=== PATIENT | male | born 1955 | race African-American/Black ===

== ENCOUNTER 2018-08-17 12:38 | Inpatient (IN) | payer OTHER ==
[~2018-08-17] VITALS: Ht 152.4 cm; Wt 42.2 kg
[2018-08-17] MEDS ORDERED: ADENOSINE 3 MG/ML 2ML VIAL IV ONE ×3 (12:59→13:15)
[2018-08-17] MEDS ORDERED: SODIUM CHLORIDE 0.9% 1000ML BAG (SEPSIS BOLUS) IV ONE (13:00)
[2018-08-17] MEDS ORDERED: PIPERACILLIN/TAZ 3.375G PREMIX 50 ML IV ONE (13:00)
[2018-08-17] MEDS ORDERED: DILTIAZEM HCL 5MG/ML 5ML VIAL IV ONE (13:15)
[2018-08-17 13:27] LABS: HEMATOCRIT. 40.5 % (42.0-52.0); HEMOGLOBIN. 12.6 g/dL (14.0-18.0); MEAN CORPUSCULAR HEMOGLOBIN 28.8 pg (28.0-32.0); MEAN CORPUSCULAR VOLUME 92.4 fL (80.0-94.0); MEAN PLATELET VOLUME 10.7 fl (7.4-10.4); PLATELET 262 x1000/uL (130-400); RED BLOOD CELL COUNT 4.38 mill/uL (4.7-6.1); RED CELL DISTRIBUTION WIDTH 15.5 % (11.6-14.6)
[2018-08-17 13:30] LABS: CHLORIDE 98 mEq/L (98-107)
[2018-08-17 13:34] LABS: INR 1.1; PROTHROMBIN TIME 10.7 sec (9.1-11.1)
[2018-08-17] MEDS ORDERED: LIDOCAINE HCL 1% 20ML VIAL (Pyxis) INJ ONE (14:16)
[2018-08-17 14:21] LABS: PLATELET ESTIMATE NORMAL
[2018-08-17] MEDS ORDERED: INSULIN REGULAR (DRIP) 100 UNITS in SODIUM CHLORIDE 0.9% 100 ML IV ONE (14:48)
[2018-08-17] MEDS ORDERED: DILTIAZEM HCL 125 MG in DEXT 5% WATER 100 ML IV ONE ×2 (15:00→17:30)
[2018-08-17] MEDS ORDERED: SODIUM CHLORIDE 0.9% 1,000 ML IV ONE (15:45)
[2018-08-17 15:58] LABS: PHOSPHORUS 6.1 mg/dL (2.5-4.9)
[2018-08-17] MEDS: DILTIAZEM HCL 125 MG in SODIUM CHLORIDE 0.9% 100 ML IV SCH ×2 (16:28→16:47)
[2018-08-17] MEDS: SODIUM CHLORIDE 0.9% 1,000 ML IV SCH (17:22)
[2018-08-17] MEDS ORDERED: CLONIDINE 0.1MG TABLET PO PRN (17:30)
[2018-08-17] MEDS ORDERED: INSULIN REGULAR (DRIP) 100 UNITS in SODIUM CHLORIDE 0.9% 100 ML IV SCH (17:30)
[2018-08-17] MEDS ORDERED: ONDANSETRON HCL 4MG/2ML INJ IV PRN (17:30)
[2018-08-17] MEDS ORDERED: LEVOFLOXACIN 500MG PREMIX 100 ML IV SCH ×2 (17:30→22:45)
[2018-08-17] MEDS ORDERED: GUAIFENESIN 200MG/10ML SUGAR FREE UDC PO PRN (17:30)
[2018-08-17 21:23] LABS: CHLORIDE 113 mEq/L (98-107)
[2018-08-17] MEDS ORDERED: ENOXAPARIN 40MG/0.4ML SYR SUBCUT SCH (23:00)
[2018-08-17] MEDS ORDERED: METOPROLOL TARTRATE 25MG TABLET PO SCH (23:15)
[2018-08-18] VITALS (52 sets, daily range): BP systolic 77–159; BP diastolic 38–86
[2018-08-18 00:06] LABS: CHLORIDE 117 mEq/L (98-107)
[2018-08-18] MEDS ORDERED: DEXT 5%/0.45% NACL 1000ML 1,000 ML IV ONE (01:29)
[2018-08-18] MEDS ORDERED: DEXTROSE 50% WATER 50ML SYRINGE IV ONE ×2 (05:00→08:46)
[2018-08-18] MEDS: SODIUM CHLORIDE 0.9% 1,000 ML IV SCH (06:42)
[2018-08-18 06:49] LABS: HEMATOCRIT. 31.3 % (42.0-52.0); HEMOGLOBIN. 10.2 g/dL (14.0-18.0); MEAN CORPUSCULAR HEMOGLOBIN 28.4 pg (28.0-32.0); MEAN CORPUSCULAR VOLUME 86.7 fL (80.0-94.0); MEAN PLATELET VOLUME 9.9 fl (7.4-10.4); PLATELET 194 x1000/uL (130-400); RED BLOOD CELL COUNT 3.61 mill/uL (4.7-6.1); RED CELL DISTRIBUTION WIDTH 14.7 % (11.6-14.6)
[2018-08-18 06:58] LABS: CHLORIDE 122 mEq/L (98-107)
[2018-08-18 07:10] LABS: T4 FREE 1.44 ng/dL (0.76-1.46)
[2018-08-18 07:18] LABS: BETA HYDROXYBUTYRATE < 0.1 mMol/L (0.0-0.3)
[2018-08-18 07:26] LABS: PLATELET ESTIMATE NORMAL
[2018-08-18] MEDS ORDERED: HYDROMORPHONE HCL/PF 2MG/ML CPJ IV PRN (09:33)
[2018-08-18] MEDS ORDERED: ENOXAPARIN 40MG/0.4ML SYR SUBCUT SCH (10:00)
[2018-08-18] MEDS ORDERED: LEVOFLOXACIN 500MG PREMIX 100 ML IV SCH (11:00)
[2018-08-18] MEDS: METOPROLOL TARTRATE 25MG TABLET PO SCH ×2 (12:05→20:20)
[2018-08-18] MEDS: DEXT 5% WATER + KCL 20MEQ/L 1,000 ML IV SCH (12:19)
[2018-08-18] MEDS ORDERED: DILTIAZEM HCL 125 MG in DEXT 5% WATER 100 ML IV PRN (12:30)
[2018-08-18 12:51] LABS: BG BASE EXCESS -0.8 mmol/L (-2.0-2.0); BG CARBOXYHEMOGLOBIN 0.4 % (0.5-1.5); BG DEOXYHEMOGLOBIN 10.2 % (0.0-5.0); BG FRACTION INSPIRED OXYGEN 36; BG HCO3 ACT 22.8 mmol/L (22.0-26.0); BG METHEMOGLOBIN 0.1 % (0.0-1.5); BG OXYGEN SATURATION 89.7 % (92.0-98.5); BG OXYHEMOGLOBIN 89.3 % (94.0-97.0); BG PCO2 34.6 mmHg (35.0-45.0); BG PH 7.437 (7.350-7.450); BG PO2 54.5 mmHg (75.0-100.0); BG SAMPLE SITE RIGHT BRACHIAL; BG TOTAL HEMOGLOBIN 12.8 g/dL (12.0-18.0); BG VENT MODE NASAL CANNULA
[2018-08-18] MEDS ORDERED: NOREPINEPHRINE 4 MG in DEXT 5% WATER 246 ML IV PRN ×2 (15:30→17:14)
[2018-08-18 15:41] LABS: CREATINE KINASE MB FRACTION 19.9 ng/mL (0.5-3.6)
[2018-08-18] MEDS: PHENYLEPHRINE 40 MG in DEXT 5% WATER 246 ML IV PRN ×2 (16:54→23:40)
[2018-08-18] MEDS: ASPIRIN 81MG TABLET PO SCH (17:15)
[2018-08-18] MEDS: CLOPIDOGREL 75MG TABLET PO SCH (17:15)
[2018-08-18] MEDS ORDERED: VANCOMYCIN 1 G PREMIX 200 ML IV SCH (19:30)
[2018-08-18] MEDS ORDERED: IPRATROPIUM/ALBUTEROL 0.5-3(2.5)MG/3ML NEB HHN PRN (19:30)
[2018-08-18] MEDS: PIPERACILLIN/TAZ 3.375G PREMIX 50 ML IV SCH (20:20)
[2018-08-18] MEDS ORDERED: DEXTROSE 50% WATER 50ML SYRINGE IV PRN (20:30)
[2018-08-18 20:34] LABS: HEPATITIS B SURFACE ANTIGEN NEGATIVE
[2018-08-18 21:04] LABS: HEPATITIS A AB IGM NEGATIVE (NEGATIVE)
[2018-08-18 21:42] LABS: CLARITY URINE TURBID (CLEAR); COLOR URINE YELLOW (YELLOW); KETONES URINE NEGATIVE (NEGATIVE); LEUKOCYTE ESTERASE URINE 3+ (NEGATIVE); NITRITE URINE NEGATIVE (NEGATIVE); OCCULT BLOOD URINE 3+ (NEGATIVE); PROTEIN URINE NEGATIVE (NEGATIVE); SPECIFIC GRAVITY URINE 1.018 (1.005-1.030)
[2018-08-18 21:54] LABS: *AMPHETAMINES SCREEN URINE NEGATIVE (NEGATIVE); *BARBITURATES SCREEN URINE NEGATIVE (NEGATIVE); *BENZODIAZEPINES SCREEN URINE NEGATIVE (NEGATIVE); *COCAINE SCREEN URINE NEGATIVE (NEGATIVE)
[2018-08-18 21:55] LABS: CANNABINOID URINE SCREEN PRESUMTIVE POSITIVE (NEGATIVE); METHADONE URINE SCREEN NEGATIVE (NEGATIVE); OPIATES URINE SCREEN PRESUMTIVE POSITIVE (NEGATIVE); PHENCYCLIDINE URINE SCREEN NEGATIVE (NEGATIVE)
[2018-08-18] MEDS: BLOOD SUGAR DIAGNOSTIC STRIP TEST SCH (22:14)
[2018-08-18] MEDS ORDERED: IOHEXOL-350 100 ML BOTTLE ONE (22:30)
[2018-08-18] MEDS: ENOXAPARIN 60MG/0.6ML SYR SUBCUT SCH (23:01)
[2018-08-18 23:23] LABS: CREATINE KINASE MB FRACTION 12.1 ng/mL (0.5-3.6)
[2018-08-19] VITALS (94 sets, daily range): BP systolic 84–159; BP diastolic 27–106
[2018-08-19] MEDS: DEXT 5% WATER + KCL 20MEQ/L 1,000 ML IV SCH ×2 (00:14→14:00)
[2018-08-19 01:17] LABS: CREATINE KINASE 3049 IU/L (39-308)
[2018-08-19] MEDS: BLOOD SUGAR DIAGNOSTIC STRIP TEST SCH ×5 (02:30→23:50)
[2018-08-19] MEDS: INSULIN LISPRO 100 UNITS/ML SUBCUT SCH ×5 (02:54→23:50)
[2018-08-19] MEDS: PIPERACILLIN/TAZ 3.375G PREMIX 50 ML IV SCH ×3 (02:54→19:00)
[2018-08-19 05:29] LABS: HEMATOCRIT. 37.2 % (42.0-52.0); HEMOGLOBIN. 11.8 g/dL (14.0-18.0); MEAN CORPUSCULAR HEMOGLOBIN 27.9 pg (28.0-32.0); MEAN CORPUSCULAR VOLUME 87.7 fL (80.0-94.0); MEAN PLATELET VOLUME 11.6 fl (7.4-10.4); PLATELET 175 x1000/uL (130-400); RED BLOOD CELL COUNT 4.24 mill/uL (4.7-6.1); RED CELL DISTRIBUTION WIDTH 14.6 % (11.6-14.6)
[2018-08-19 05:37] LABS: CHLORIDE 111 mEq/L (98-107)
[2018-08-19 05:49] LABS: CREATINE KINASE MB FRACTION 7.9 ng/mL (0.5-3.6)
[2018-08-19 06:04] LABS: CREATINE KINASE 2826 IU/L (39-308)
[2018-08-19 08:23] LABS: BG BASE EXCESS -1.1 mmol/L (-2.0-2.0); BG CARBOXYHEMOGLOBIN 0.3 % (0.5-1.5); BG DEOXYHEMOGLOBIN 2.2 % (0.0-5.0); BG FRACTION INSPIRED OXYGEN 50; BG HCO3 ACT 21.4 mmol/L (22.0-26.0); BG METHEMOGLOBIN 0.8 % (0.0-1.5); BG OXYGEN SATURATION 97.8 % (92.0-98.5); BG OXYHEMOGLOBIN 96.7 % (94.0-97.0); BG PCO2 28.5 mmHg (35.0-45.0); BG PH 7.493 (7.350-7.450); BG PO2 110.1 mmHg (75.0-100.0); BG SAMPLE SITE RIGHT RADIAL; BG TOTAL HEMOGLOBIN 10.9 g/dL (12.0-18.0); BG VENT MODE MASK - VENTI
[2018-08-19] MEDS: IPRATROPIUM/ALBUTEROL 0.5-3(2.5)MG/3ML NEB HHN SCH ×3 (08:42→22:06)
[2018-08-19] MEDS: METOPROLOL TARTRATE 25MG TABLET PO SCH ×2 (09:00→21:00)
[2018-08-19] MEDS: VANCOMYCIN 1 G PREMIX 200 ML IV SCH ×2 (09:00→21:22)
[2018-08-19] MEDS: ASPIRIN 81MG TABLET PO SCH (10:03)
[2018-08-19] MEDS: CLOPIDOGREL 75MG TABLET PO SCH (10:03)
[2018-08-19] MEDS: PHENYLEPHRINE 40 MG in DEXT 5% WATER 246 ML IV PRN (10:07)
[2018-08-19] MEDS: ENOXAPARIN 60MG/0.6ML SYR SUBCUT SCH (11:30)
[2018-08-19 12:45] LABS: PLATELET ESTIMATE NORMAL
[2018-08-19] MEDS: SODIUM CHLORIDE 0.45% 1,000 ML IV SCH (19:00)
[2018-08-19] MEDS: ENOXAPARIN 40MG/0.4ML SYR SUBCUT SCH (23:49)
[2018-08-20] VITALS (63 sets, daily range): BP systolic 89–137; BP diastolic 28–84
[2018-08-20] MEDS: PIPERACILLIN/TAZ 3.375G PREMIX 50 ML IV SCH ×3 (02:13→18:29)
[2018-08-20] MEDS: IPRATROPIUM/ALBUTEROL 0.5-3(2.5)MG/3ML NEB HHN SCH ×4 (02:26→21:15)
[2018-08-20 06:00] LABS: HEMATOCRIT. 27.2 % (42.0-52.0); HEMOGLOBIN. 9.1 g/dL (14.0-18.0); MEAN CORPUSCULAR HEMOGLOBIN 28.7 pg (28.0-32.0); MEAN CORPUSCULAR VOLUME 85.5 fL (80.0-94.0); MEAN PLATELET VOLUME 10.4 fl (7.4-10.4); PLATELET 140 x1000/uL (130-400); RED BLOOD CELL COUNT 3.18 mill/uL (4.7-6.1); RED CELL DISTRIBUTION WIDTH 14.5 % (11.6-14.6)
[2018-08-20 06:03] LABS: CHLORIDE 109 mEq/L (98-107)
[2018-08-20] MEDS: BLOOD SUGAR DIAGNOSTIC STRIP TEST SCH ×4 (06:08→23:57)
[2018-08-20] MEDS: INSULIN LISPRO 100 UNITS/ML SUBCUT SCH ×4 (06:09→23:58)
[2018-08-20] MEDS: VANCOMYCIN 1 G PREMIX 200 ML IV SCH ×2 (08:57→20:52)
[2018-08-20 09:06] LABS: HIV SCREEN 4G Non Reactive (Non Reactive)
[2018-08-20 09:13] LABS: PLATELET ESTIMATE NORMAL
[2018-08-20] MEDS: ASPIRIN 81MG TABLET PO SCH (09:24)
[2018-08-20] MEDS: CLOPIDOGREL 75MG TABLET PO SCH (09:24)
[2018-08-20] MEDS: METOPROLOL TARTRATE 25MG TABLET PO SCH ×2 (09:24→20:52)
[2018-08-20] MEDS ORDERED: POTASSIUM CHLORIDE INJ 40 MEQ in DEXT 5% WATER 250 ML IV SCH (12:00)
[2018-08-20] MEDS: FLUCONAZOLE 100MG TABLET PO SCH (12:02)
[2018-08-20] MEDS: ENOXAPARIN 40MG/0.4ML SYR SUBCUT SCH ×2 (12:41→23:57)
[2018-08-20] MEDS: SODIUM CHLORIDE 0.45% 1,000 ML IV SCH (18:29)
[2018-08-20] MEDS: ACETAMINOPHEN 325MG TABLET PO PRN (23:57)
[2018-08-21] VITALS: BP 123/50
[2018-08-21] MEDS: IPRATROPIUM/ALBUTEROL 0.5-3(2.5)MG/3ML NEB HHN SCH ×5 (01:15→22:09)
[2018-08-21] MEDS: PIPERACILLIN/TAZ 3.375G PREMIX 50 ML IV SCH ×3 (02:30→18:23)
[2018-08-21] MEDS: SODIUM CHLORIDE 0.45% 1,000 ML IV SCH ×2 (02:31→22:02)
[2018-08-21 04:00] VITALS: BP 147/82
[2018-08-21] MEDS: BLOOD SUGAR DIAGNOSTIC STRIP TEST SCH ×3 (05:39→18:18)
[2018-08-21] MEDS: INSULIN LISPRO 100 UNITS/ML SUBCUT SCH ×3 (05:39→18:24)
[2018-08-21 08:00] VITALS: BP 151/56
[2018-08-21] MEDS: CLOPIDOGREL 75MG TABLET PO SCH (09:55)
[2018-08-21] MEDS: METOPROLOL TARTRATE 25MG TABLET PO SCH ×2 (09:56→22:01)
[2018-08-21] MEDS: FLUCONAZOLE 100MG TABLET PO SCH (09:56)
[2018-08-21] MEDS: ASPIRIN 81MG TABLET PO SCH (09:56)
[2018-08-21 12:00] VITALS: BP 143/56
[2018-08-21] MEDS: VANCOMYCIN 500 MG PREMIX 100 ML IV SCH ×2 (12:58→19:09)
[2018-08-21] MEDS: ENOXAPARIN 40MG/0.4ML SYR SUBCUT SCH (13:09)
[2018-08-21] MEDS: INSULIN GLARGINE UD 100 UNITS/ML SYR SUBCUT SCH (13:11)
[2018-08-21 15:29] LABS: CHLORIDE 105 mEq/L (98-107)
[2018-08-21 16:00] VITALS: BP 110/50
[2018-08-21] MEDS ORDERED: POTASSIUM CHLORIDE 20MEQ TABLET SR PO NR (17:00)
[2018-08-21 20:00] VITALS: BP 131/58
[2018-08-22] VITALS: BP 143/51
[2018-08-22] MEDS: INSULIN LISPRO 100 UNITS/ML SUBCUT SCH ×5 (00:03→23:55)
[2018-08-22] MEDS: IPRATROPIUM/ALBUTEROL 0.5-3(2.5)MG/3ML NEB HHN SCH ×4 (02:25→21:30)
[2018-08-22] MEDS: VANCOMYCIN 500 MG PREMIX 100 ML IV SCH ×3 (03:33→18:06)
[2018-08-22 04:00] VITALS: BP 118/49
[2018-08-22] MEDS: PIPERACILLIN/TAZ 3.375G PREMIX 50 ML IV SCH ×3 (04:37→18:06)
[2018-08-22] MEDS: BLOOD SUGAR DIAGNOSTIC STRIP TEST SCH ×5 (06:21→23:55)
[2018-08-22 08:00] VITALS: BP 122/53
[2018-08-22] MEDS: ENOXAPARIN 40MG/0.4ML SYR SUBCUT SCH (08:34)
[2018-08-22] MEDS: CLOPIDOGREL 75MG TABLET PO SCH (08:34)
[2018-08-22] MEDS: FLUCONAZOLE 100MG TABLET PO SCH (08:35)
[2018-08-22] MEDS: ASPIRIN 81MG TABLET PO SCH (08:35)
[2018-08-22] MEDS: METOPROLOL TARTRATE 25MG TABLET PO SCH ×2 (08:35→21:00)
[2018-08-22] MEDS: ACETAMINOPHEN 325MG TABLET PO PRN (08:36)
[2018-08-22 09:10] LABS: BASOPHILS % 0.2 % (0.0-2.0); EOSINOPHILS % 1.7 % (0.0-5.0); HEMOGLOBIN. 8.9 g/dL (14.0-18.0); LYMPHOCYTES % 9.4 % (20.0-50.0); MEAN CORPUSCULAR HEMOGLOBIN 28.5 pg (28.0-32.0); MEAN CORPUSCULAR VOLUME 86.4 fL (80.0-94.0); MEAN PLATELET VOLUME 9.6 fl (7.4-10.4); MONOCYTES % 11.3 % (2.0-8.0); NEUTROPHILS % 77.4 % (40.0-76.0); PLATELET 187 x1000/uL (130-400); RED BLOOD CELL COUNT 3.13 mill/uL (4.7-6.1); RED CELL DISTRIBUTION WIDTH 14.4 % (11.6-14.6)
[2018-08-22 09:28] LABS: CHLORIDE 106 mEq/L (98-107)
[2018-08-22 12:00] VITALS: BP 136/54
[2018-08-22] MEDS: INSULIN GLARGINE UD 100 UNITS/ML SYR SUBCUT SCH (12:19)
[2018-08-22] MEDS: SODIUM CHLORIDE 0.45% 1,000 ML IV SCH (13:50)
[2018-08-22 16:00] VITALS: BP_SYST 126; BP_SYST 128; BP_DIAS 48; BP_DIAS 50
[2018-08-22 20:00] VITALS: BP 109/48
[2018-08-23] VITALS: BP 140/53
[2018-08-23] MEDS: IPRATROPIUM/ALBUTEROL 0.5-3(2.5)MG/3ML NEB HHN SCH ×4 (00:41→20:04)
[2018-08-23] MEDS: VANCOMYCIN 500 MG PREMIX 100 ML IV SCH ×3 (02:42→18:31)
[2018-08-23] MEDS: PIPERACILLIN/TAZ 3.375G PREMIX 50 ML IV SCH ×3 (03:37→18:31)
[2018-08-23 04:00] VITALS: BP 110/50
[2018-08-23] MEDS: INSULIN LISPRO 100 UNITS/ML SUBCUT SCH ×3 (06:00→17:13)
[2018-08-23] MEDS: BLOOD SUGAR DIAGNOSTIC STRIP TEST SCH ×3 (06:02→17:14)
[2018-08-23] MEDS: METOPROLOL TARTRATE 25MG TABLET PO SCH ×2 (09:00→21:14)
[2018-08-23] MEDS: FLUCONAZOLE 100MG TABLET PO SCH (09:35)
[2018-08-23] MEDS: CLOPIDOGREL 75MG TABLET PO SCH (09:35)
[2018-08-23] MEDS: ENOXAPARIN 40MG/0.4ML SYR SUBCUT SCH (09:35)
[2018-08-23] MEDS: ASPIRIN 81MG TABLET PO SCH (09:36)
[2018-08-23] MEDS: INSULIN GLARGINE UD 100 UNITS/ML SYR SUBCUT SCH (10:42)
[2018-08-23 20:00] VITALS: BP 179/79
[2018-08-23] MEDS: SODIUM CHLORIDE 0.45% 1,000 ML IV SCH (21:13)
[2018-08-24] VITALS: BP 148/49
[2018-08-24] MEDS: BLOOD SUGAR DIAGNOSTIC STRIP TEST SCH ×3 (00:05→12:57)
[2018-08-24] MEDS: INSULIN LISPRO 100 UNITS/ML SUBCUT SCH ×3 (00:06→13:36)
[2018-08-24] MEDS: IPRATROPIUM/ALBUTEROL 0.5-3(2.5)MG/3ML NEB HHN SCH ×3 (02:00→13:29)
[2018-08-24] MEDS: VANCOMYCIN 500 MG PREMIX 100 ML IV SCH ×2 (02:06→13:37)
[2018-08-24] MEDS: PIPERACILLIN/TAZ 3.375G PREMIX 50 ML IV SCH ×2 (03:20→12:50)
[2018-08-24 04:00] VITALS: BP 127/47
[2018-08-24 08:00] VITALS: BP 127/52
[2018-08-24] MEDS: CLOPIDOGREL 75MG TABLET PO SCH (09:18)
[2018-08-24] MEDS: METOPROLOL TARTRATE 25MG TABLET PO SCH (09:18)
[2018-08-24] MEDS: FLUCONAZOLE 100MG TABLET PO SCH (09:18)
[2018-08-24] MEDS: ASPIRIN 81MG TABLET PO SCH (09:18)
[2018-08-24] MEDS: ENOXAPARIN 40MG/0.4ML SYR SUBCUT SCH (09:18)
[2018-08-24 11:31] LABS: BASOPHILS % 0.4 % (0.0-2.0); EOSINOPHILS % 0.8 % (0.0-5.0); HEMATOCRIT. 23.3 % (42.0-52.0); HEMOGLOBIN. 7.7 g/dL (14.0-18.0); LYMPHOCYTES % 15.6 % (20.0-50.0); MEAN CORPUSCULAR HEMOGLOBIN 28.7 pg (28.0-32.0); MEAN CORPUSCULAR VOLUME 86.6 fL (80.0-94.0); MEAN PLATELET VOLUME 9.4 fl (7.4-10.4); MONOCYTES % 13.4 % (2.0-8.0); NEUTROPHILS % 69.8 % (40.0-76.0); PLATELET 218 x1000/uL (130-400); RED BLOOD CELL COUNT 2.69 mill/uL (4.7-6.1); RED CELL DISTRIBUTION WIDTH 14.6 % (11.6-14.6)
[2018-08-24 11:44] LABS: CHLORIDE 106 mEq/L (98-107)
[2018-08-24 12:00] VITALS: BP 142/53
[2018-08-24] MEDS ORDERED: POTASSIUM CHLORIDE 20MEQ TABLET SR PO NR (13:15)
[2018-08-24] MEDS: INSULIN GLARGINE UD 100 UNITS/ML SYR SUBCUT SCH (13:37)
[2018-08-24 16:00] VITALS: BP 133/48
[2018-08-24 16:35] VITALS: BP 133/48
== END 2018-08-24 17:20 | disposition home or self-care (01) | DRG 720 ==
LOC: ER 12:38 → EDBEDREQ 14:00 → EDBEDREQSVC 14:00 → 5WST 15:44 → EDBEDREQ 15:47 → SUPCPDRO 17:21 → EDBEDREQSVC 08-18 05:24 → ENRESERV 08-18 07:28 → MICUNO 08-18 11:30 → 5WST 08-20 20:11
PROVIDERS: ADMIT Hospitalist; ATTEND Hospitalist
PROC: B5181ZA Fluoroscopy of Superior Vena Cava using Low Osmolar Contrast, Guidance (ICD-10-PCS; principal; 2018-08-17)
PROC: 02HV33Z Insertion of Infusion Device into Superior Vena Cava, Percutaneous Approach (ICD-10-PCS; 2018-08-17)
PROC: B548ZZA Ultrasonography of Superior Vena Cava, Guidance (ICD-10-PCS; 2018-08-17)
DX: A41.9 Sepsis, unspecified organism (principal); I21.4 Non-ST elevation (NSTEMI) myocardial infarction; J96.01 Acute respiratory failure with hypoxia; R65.21 Severe sepsis with septic shock; G93.40 Encephalopathy, unspecified; E11.10 Type 2 diabetes mellitus with ketoacidosis without coma; E46 Unspecified protein-calorie malnutrition; L89.219 Pressure ulcer of right hip, unspecified stage; I95.9 Hypotension, unspecified; I50.31 Acute diastolic (congestive) heart failure; I11.0 Hypertensive heart disease with heart failure; I82.91 Chronic embolism and thrombosis of unspecified vein; D64.9 Anemia, unspecified; M62.82 Rhabdomyolysis; E87.0 Hyperosmolality and hypernatremia; B19.20 Unspecified viral hepatitis C without hepatic coma; I25.10 Atherosclerotic heart disease of native coronary artery without angina pectoris; J84.9 Interstitial pulmonary disease, unspecified; F19.10 Other psychoactive substance abuse, uncomplicated; I47.1 Supraventricular tachycardia; E11.649 Type 2 diabetes mellitus with hypoglycemia without coma; I48.91 Unspecified atrial fibrillation; I82.532 Chronic embolism and thrombosis of left popliteal vein; N17.9 Acute kidney failure, unspecified; R32 Unspecified urinary incontinence; Z89.512 Acquired absence of left leg below knee; Z89.611 Acquired absence of right leg above knee; Z68.1 Body mass index [BMI] 19.9 or less, adult; J18.9 Pneumonia, unspecified organism
CPT/HCPCS: 36415; 36569; 36600; 71045; 71275; 76937; 80048; 80061; 80202; 80305; 82010; 82140; 82375; 82550; 82553; 82805; 82962; 83036; 83605; 83735; 83880; 84100; 84134; 84145; 84439; 84443; 84484; 85379; 86705; 86709; 86803; 87106; 87340; 87389; 87804; 92610; 93005; 93306; 93970; 94640; 96374; 96375; 97162; 97166; 97530; 99285; C1725; J0153; J1650; J1815; J1956; J2370; J2543; J3370; J3480; J3490; J7030; J7050; J7060; J7620; Q9967; A4315